=== PATIENT | male | born 1960 | race African-American/Black ===

== ENCOUNTER 2020-08-25 19:11 | Emergency (ER) | payer MEDICAID ==
[~2020-08-25] VITALS: Ht 182.9 cm; Wt 73.0 kg
[2020-08-25 19:13] VITALS: BP 142/90
== END 2020-08-25 20:43 | disposition left against medical advice (07) ==
LOC: ER 19:11
DX: Z53.21 Procedure and treatment not carried out due to patient leaving prior to being seen by health care provider (principal)

== ENCOUNTER 2020-09-15 09:28 | Emergency (ER) | payer MEDICAID ==
[~2020-09-15] VITALS: Ht 182.9 cm; Wt 79.0 kg
[2020-09-15] MEDS ORDERED: ONDANSETRON HCL 4MG/2ML INJ IV STA (10:04)
[2020-09-15] MEDS ORDERED: SODIUM CHLORIDE 0.9% 1,000 ML IV ONE (10:15)
[2020-09-15] MEDS ORDERED: KETOROLAC 15MG/ML VIAL IV ONE (10:15)
[2020-09-15 11:04] LABS: BASOPHILS % 0.7 % (0.0-2.0); EOSINOPHILS % 1.2 % (0.0-5.0); HEMATOCRIT. 40.1 % (42.0-52.0); HEMOGLOBIN. 13.6 g/dL (14.0-18.0); LYMPHOCYTES % 23.6 % (20.0-50.0); MEAN CORPUSCULAR HEMOGLOBIN 30.3 pg (28.0-32.0); MEAN CORPUSCULAR VOLUME 89.2 fL (80.0-94.0); MEAN PLATELET VOLUME 9.4 fl (7.4-10.4); MONOCYTES % 10.1 % (2.0-8.0); NEUTROPHILS % 64.4 % (40.0-76.0); PLATELET 216 x1000/uL (130-400)
[2020-09-15 11:12] LABS: CHLORIDE 105 mEq/L (98-107)
[2020-09-15 11:41] VITALS: BP 159/95
[2020-09-15 12:52] LABS: CLARITY URINE CLEAR (CLEAR); COLOR URINE YELLOW (YELLOW); KETONES URINE NEGATIVE (NEGATIVE); LEUKOCYTE ESTERASE URINE NEGATIVE (NEGATIVE); NITRITE URINE NEGATIVE (NEGATIVE); OCCULT BLOOD URINE NEGATIVE (NEGATIVE); PROTEIN URINE NEGATIVE (NEGATIVE)
[2020-09-16] MEDS ORDERED: FLUO10CA25 MT (11:36)
[2020-09-16] MEDS ORDERED: RISP4TAB16 PO (11:36)
[2020-09-16] MEDS ORDERED: BENZ1TAB7 MT (11:36)
== END 2020-09-15 12:47 | disposition left against medical advice (07) ==
LOC: ER 09:28
DX: K52.9 Noninfective gastroenteritis and colitis, unspecified (principal); E11.9 Type 2 diabetes mellitus without complications; J45.909 Unspecified asthma, uncomplicated; I25.2 Old myocardial infarction; I10 Essential (primary) hypertension; Z88.0 Allergy status to penicillin; Z98.890 Other specified postprocedural states
CPT/HCPCS: 36415; 71045; 74176; 80053; 81003; 83690; 85025; 93005; 96374; 96375; 99285; J1885; J2405; J7030

== ENCOUNTER 2020-09-20 14:25 | Emergency (ER) | payer MEDICAID ==
[~2020-09-20] VITALS: Ht 182.9 cm; Wt 82.0 kg
[~2020-09-20 14:25] MED LIST: BENZ1TAB7 MT; FLUO10CA25 MT; RISP4TAB16 PO
[2020-09-20 15:00] VITALS: BP 156/84
== END 2020-09-20 17:00 | disposition left against medical advice (07) ==
LOC: ER 14:25
DX: Z53.21 Procedure and treatment not carried out due to patient leaving prior to being seen by health care provider (principal); R42 Dizziness and giddiness
CPT/HCPCS: 93005

== ENCOUNTER 2020-09-20 20:01 | Emergency (ER) | payer MEDICAID ==
[~2020-09-20] VITALS: Ht 188 cm; Wt 73.0 kg
[2020-09-20 22:07] LABS: BASOPHILS % 1.5 % (0.0-2.0); EOSINOPHILS % 3.8 % (0.0-5.0); HEMATOCRIT. 39.3 % (42.0-52.0); LYMPHOCYTES % 25.8 % (20.0-50.0); MEAN CORPUSCULAR HEMOGLOBIN 29.8 pg (28.0-32.0); MEAN CORPUSCULAR VOLUME 89.9 fL (80.0-94.0); MEAN PLATELET VOLUME 9.6 fl (7.4-10.4); MONOCYTES % 11.9 % (2.0-8.0); PLATELET 228 x1000/uL (130-400); RED BLOOD CELL COUNT 4.37 mill/uL (4.7-6.1); RED CELL DISTRIBUTION WIDTH 14.3 % (11.6-14.6)
[2020-09-20 22:13] LABS: CHLORIDE 108 mEq/L (98-107)
[2020-09-20 22:25] LABS: ETHANOL BLOOD 41 mg/dL
[2020-09-20] MEDS ORDERED: SODIUM CHLORIDE 0.9% 500 ML IV ONE (23:30)
[2020-09-21 01:43] VITALS: BP 129/87
== END 2020-09-21 01:49 | disposition home or self-care (01) ==
LOC: ER 20:01
DX: R53.1 Weakness (principal); R07.89 Other chest pain; I10 Essential (primary) hypertension; F17.210 Nicotine dependence, cigarettes, uncomplicated; Z71.6 Tobacco abuse counseling; E11.9 Type 2 diabetes mellitus without complications; Z79.899 Other long term (current) drug therapy
CPT/HCPCS: 36415; 71045; 80053; 80320; 83690; 83735; 83880; 84484; 85025; 93005; 96360; 99285; 99406; J7040; Z7610; G0480

== ENCOUNTER 2020-11-25 21:27 | Emergency (ER) | payer MEDICAID ==
[~2020-11-25] VITALS: Ht 177.8 cm; Wt 71.0 kg
[~2020-11-25 21:27] MED LIST changes: -RISP4TAB16 PO; +RISP4TAB72 PO
[2020-11-25 21:45] VITALS: BP 138/86
[2020-11-25] MEDS ORDERED: ACETAMINOPHEN 325MG TABLET PO ONE (22:00)
== END 2020-11-25 22:40 | disposition home or self-care (01) ==
LOC: ER 21:27
DX: M25.511 Pain in right shoulder (principal); M54.2 Cervicalgia; M79.673 Pain in unspecified foot; Z76.5 Malingerer [conscious simulation]; I10 Essential (primary) hypertension; E11.9 Type 2 diabetes mellitus without complications; W01.0XXA Fall on same level from slipping, tripping and stumbling without subsequent striking against object, initial encounter; Y93.01 Activity, walking, marching and hiking; Y92.89 Other specified places as the place of occurrence of the external cause; Z59.0 Homelessness
CPT/HCPCS: 82962; 99283